=== PATIENT | female | born 1955 | race Caucasian/White ===

== ENCOUNTER → 2017-06-30 | Outpatient (CLI) | payer OTHER ==
[~2017-06-30] MED LIST: ASCO10004 PO; AZIT500T2 PO; CALC1CAP8 PO; CHOL500045 PO; LEVO50TA5 PO; MULT-257 PO; potassium PO
== END | disposition home or self-care (01) ==
LOC: STAR 09:36
PROVIDERS: ATTEND Surgery
DX: Z01.812 Encounter for preprocedural laboratory examination (principal); K80.20 Calculus of gallbladder without cholecystitis without obstruction
CPT/HCPCS: 93005

== ENCOUNTER 2017-07-09 06:04 | Day surgery (SDC) | payer OTHER ==
[~2017-07-09] VITALS: Ht 175.3 cm; Wt 56.4 kg
[2017-07-09 06:28] VITALS: BP 101/68
[2017-07-09] MEDS ORDERED: LACTATED RINGERS 1,000 ML IV SCH (06:43)
[2017-07-09] MEDS ORDERED: LIDOCAINE-MPF 1%, 2ML ONE (06:45)
[2017-07-09] MEDS ORDERED: LIDOCAINE 1%, 2ML SQ PRN (07:00)
[2017-07-09] MEDS ORDERED: EPINEPHRINE 1 MG/ML, 1ML ONE (07:33)
[2017-07-09] MEDS ORDERED: BUPIVACAINE/PF 0.5% ONE (07:33)
[2017-07-09] MEDS ORDERED: MIDAZOLAM 1 MG/ML, 2ML ONE (07:43)
[2017-07-09] MEDS ORDERED: FENTANYL PF 250 MCG/5ML ONE (07:44)
[2017-07-09] MEDS ORDERED: GABAPENTIN 300 MG CAPSULE ONE (07:46)
[2017-07-09] MEDS ORDERED: ACETAMINOPHEN 500 MG TABLET ONE (07:46)
[2017-07-09] MEDS ORDERED: LIDOCAINE GEL 2%, 5ML ONE (07:46)
[2017-07-09] MEDS ORDERED: SCOPOLAMINE PATCH, 1.5MG PATCH.TD72 TD ONE ×2 (07:46→08:00)
[2017-07-09] MEDS ORDERED: SUCCINYLCHOLINE 20 MG/ML, 10ML ONE (07:59)
[2017-07-09] MEDS ORDERED: CEFAZOLIN 1,000 MG ONE (07:59)
[2017-07-09] MEDS ORDERED: DEXAMETHASONE 4 MG/ML, 1ML ONE (07:59)
[2017-07-09] MEDS ORDERED: ONDANSETRON 2MG/ML, 2ML ONE (07:59)
[2017-07-09] MEDS ORDERED: GLYCOPYRROLATE 0.2MG/1ML, 5ML ONE (07:59)
[2017-07-09] MEDS ORDERED: PROPOFOL 10 MG/ML, 20ML ONE (07:59)
[2017-07-09] MEDS ORDERED: KETOROLAC 30 MG/1 ML ONE (07:59)
[2017-07-09] MEDS ORDERED: METOCLOPRAMIDE 5 MG/ML, 2ML ONE (07:59)
[2017-07-09] MEDS ORDERED: NEOSTIGMINE 1 MG/ML, 10ML ONE (07:59)
[2017-07-09] MEDS ORDERED: ROCURONIUM 10 MG/ML,10ML ONE (07:59)
[2017-07-09] MEDS ORDERED: GABAPENTIN 400 MG CAPSULE PO ONE (08:00)
[2017-07-09] MEDS ORDERED: ACETAMINOPHEN 500 MG TABLET PO ONE (08:00)
[2017-07-09] MEDS ORDERED: EPHEDRINE 50 MG/ML, 1ML ONE (08:02)
[2017-07-09] MEDS ORDERED: HYDROmorphone 1 MG/ML, 1ML IV PRN (08:30)
[2017-07-09] MEDS ORDERED: ONDANSETRON 2MG/ML, 2ML IVPush PRN (08:30)
[2017-07-09] MEDS ORDERED: hydrALAzine 20 MG/ML, 1ML IV PRN (08:30)
[2017-07-09] MEDS ORDERED: PROMETHAZINE 12.5 MG SUPP PR PRN (08:30)
[2017-07-09] MEDS ORDERED: ALBUTEROL/IPRATROPIUM 2.5MG/0.5MG, 3 ML NPPB PRN (08:30)
[2017-07-09] MEDS ORDERED: MEPERIDINE/PF 25MG/0.5ML IVPush PRN (08:30)
[2017-07-09] MEDS ORDERED: DIAZEPAM 5 MG/ML, 2ML IVPush PRN (08:30)
[2017-07-09] MEDS ORDERED: ACETAMINOPHEN 325 MG TABLET PO PRN (08:30)
[2017-07-09] MEDS ORDERED: LABETALOL 5MG/ML, 20ML IV PRN (08:30)
[2017-07-09] MEDS ORDERED: PROMETHAZINE 25 MG/ML, 1ML IV PRN (08:30)
[2017-07-09] MEDS ORDERED: FENTANYL PF 100 MCG/2ML IV PRN (08:30)
[2017-07-09] MEDS ORDERED: OXYcodone 5 MG/5 ML ORAL.SOL UDC PO PRN (08:30)
[2017-07-09] MEDS ORDERED: MIDAZOLAM 1 MG/ML, 2ML IV PRN (08:30)
[2017-07-09] MEDS ORDERED: FENTANYL PF 100 MCG/2ML ONE (08:48)
[2017-07-09] MEDS ORDERED: OXYcodone 5 MG/5 ML ORAL.SOL UDC ONE (08:48)
[2017-07-09] MEDS ORDERED: ACETAMINOPHEN 650 MG/20.3 ML UDC ONE (08:58)
== END 2017-07-09 15:25 | disposition home or self-care (01) ==
LOC: OUT 06:04
PROVIDERS: ATTEND Surgery
DX: K80.10 Calculus of gallbladder with chronic cholecystitis without obstruction (principal); E03.9 Hypothyroidism, unspecified; Z98.890 Other specified postprocedural states
CPT/HCPCS: 47562; 88304; J0171; J0330; J0690; J1100; J1885; J2250; J2405; J2704; J2710; J2765; J3010; J3490; J7120

== ENCOUNTER 2019-03-03 05:33 | Day surgery (SDC) | payer MEDICARE ==
[2019-02-28 12:14] LABS: BASOPHILS # (AUTO) 0.01 x10^3/uL (0-0.1); BASOPHILS % (AUTO) 0 % (0-1); EOSINOPHILS # (AUTO) 0.02 x10^3/uL (0-0.4); EOSINOPHILS % (AUTO) 1 % (1-7); LYMPHOCYTES # (AUTO) 1.12 x10^3/uL (1-3.4); LYMPHOCYTES % (AUTO) 26 % (22-44); MD NO; MEAN CORPUSCULAR HEMOGLOBIN 31.3 pg (27.0-34.8); MEAN CORPUSCULAR VOLUME 95.1 fL (80-100); MEAN PLATELET VOLUME 6.7 fL (7.4-10.4); MONOCYTES # (AUTO) 0.35 x10^3/uL (0.2-0.8); MONOCYTES % (AUTO) 8 % (2-9); NEUTROPHILS # (AUTO) 2.74 x10^3/uL (1.8-6.8); NEUTROPHILS % (AUTO) 65 % (42-75); PLATELET COUNT 191 x10^3/uL (130-400); RED BLOOD COUNT 3.96 x10^6/uL (3.82-5.3); RED CELL DISTRIBUTION WIDTH 13.5 % (9.6-15.2)
[2019-02-28 12:26] LABS: ALBUMIN 3.6 g/dL (3.4-5.0); ANION GAP 4 mmol/L (5-15); CALCIUM 8.5 mg/dL (8.5-10.1); CHLORIDE 107 mmol/L (98-107)
[2019-02-28 12:30] LABS: ALANINE AMINOTRANSFERASE 18 U/L (12-78); ALKALINE PHOSPHATASE 77 U/L (45-117); BILIRUBIN,TOTAL 0.8 mg/dL (0.2-1.0); TOTAL PROTEIN 6.3 g/dL (6.4-8.2)
[2019-02-28 12:56] LABS: MICROSCOPIC AUTO
[2019-02-28 12:58] LABS: CULTURE INDICATED? NO
[~2019-03-03] VITALS: Ht 175.3 cm; Wt 58.4 kg
[~2019-03-03 05:33] MED LIST changes: +CA C1TAB62 PO; +PROGESTERONE CREAM
[2019-03-03] MEDS ORDERED: LACTATED RINGERS 1,000 ML IV SCH (06:08)
[2019-03-03] MEDS ORDERED: LIDOCAINE-MPF 1%, 2ML ONE (06:22)
[2019-03-03 06:24] VITALS: BP 106/58
[2019-03-03 06:27] VITALS: BP 106/58
[2019-03-03] MEDS ORDERED: SCOP1PAT11 TD (06:30)
[2019-03-03] MEDS ORDERED: LIDOCAINE-MPF 1%, 2ML INFIL ONE (06:30)
[2019-03-03] MEDS ORDERED: FUROSEMIDE 20 MG/2 ML ONE (07:01)
[2019-03-03] MEDS ORDERED: LIDOCAINE 1%-EPI 1:100K, 20ML ONE (07:01)
[2019-03-03] MEDS ORDERED: NEOMY/POLYMYXIN B GU IRR. 1 ML ONE (07:01)
[2019-03-03] MEDS ORDERED: THROMBIN 5,000 UNIT VIAL TP ONE (07:01)
[2019-03-03] MEDS ORDERED: INDIGO CARMINE 0.8%, 5ML ONE (07:01)
[2019-03-03] MEDS ORDERED: MIDAZOLAM 1 MG/ML, 2ML ONE (07:29)
[2019-03-03] MEDS ORDERED: FENTANYL PF 250 MCG/5ML ONE (07:29)
[2019-03-03] MEDS ORDERED: PROPOFOL 50 ML ONE ×2 (07:34→08:38)
[2019-03-03] MEDS ORDERED: PROPOFOL 10 MG/ML, 20ML ONE (08:00)
[2019-03-03] MEDS ORDERED: PROMETHAZINE 25 MG/ML, 1ML IV PRN (08:00)
[2019-03-03] MEDS ORDERED: ONDANSETRON 2MG/ML, 2ML IV PRN (08:00)
[2019-03-03] MEDS ORDERED: CEFAZOLIN 1,000 MG ONE (08:00)
[2019-03-03] MEDS ORDERED: ACETAMINOPHEN 325 MG TABLET PO PRN (08:00)
[2019-03-03] MEDS ORDERED: ONDANSETRON 2MG/ML, 2ML ONE (08:00)
[2019-03-03] MEDS ORDERED: LORazepam 2 MG/ML, 1ML IVPush PRN (08:00)
[2019-03-03] MEDS ORDERED: ROCURONIUM 10MG/ML,5ML ONE (08:00)
[2019-03-03] MEDS ORDERED: HYDROmorphone 2 MG/ML, 1ML IVPush PRN (08:00)
[2019-03-03] MEDS ORDERED: OXYcodone 5 MG/5 ML ORAL.SOL UDC PO PRN (08:00)
[2019-03-03] MEDS ORDERED: NEOSTIGMINE 1 MG/ML, 10ML ONE (08:00)
[2019-03-03] MEDS ORDERED: DIPHENHYDRAMINE 50 MG/ML, 1ML IVPush PRN (08:00)
[2019-03-03] MEDS ORDERED: DEXAMETHASONE 4 MG/ML, 1ML ONE (08:00)
[2019-03-03] MEDS ORDERED: SUCCINYLCHOLINE 20 MG/ML, 10ML ONE (08:00)
[2019-03-03] MEDS ORDERED: PROMETHAZINE 25 MG SUPP PR PRN (08:00)
[2019-03-03] MEDS ORDERED: ONDANSETRON ODT 8 MG PO PRN (08:00)
[2019-03-03] MEDS ORDERED: MEPERIDINE/PF 25MG/ML,1ML IVPush PRN (08:00)
[2019-03-03] MEDS ORDERED: GLYCOPYRROLATE 0.2MG/1ML, 5ML ONE (08:00)
[2019-03-03] MEDS ORDERED: LIDOCAINE-MPF 2% ,5ML ONE (08:01)
[2019-03-03] MEDS ORDERED: SUGAMMADEX 200 MG/2 ML IVPush ONE (08:51)
[2019-03-03] MEDS ORDERED: ACETAMINOPHEN 325 MG TABLET ONE (09:30)
[2019-03-03] MEDS ORDERED: OXYcodone 5 MG/5 ML ORAL.SOL UDC ONE (09:30)
[2019-03-03] MEDS ORDERED: ACETAMINOPHEN 650 MG/20.3 ML UDC ONE (09:30)
[2019-03-03] MEDS ORDERED: HYDROcodone/APAP 5/325 TABLET PO ONE (13:00)
[2019-03-03] MEDS ORDERED: HYDROcodone/APAP 5/325 TABLET ONE (13:02)
[2019-03-03] MEDS ORDERED: EPHEDRINE 50 MG/ML, 1ML ONE (16:05)
== END 2019-03-03 16:00 | disposition home or self-care (01) ==
LOC: OUT 05:33
PROVIDERS: ATTEND Obstetrics & Gynecology Gynecology
DX: N92.0 Excessive and frequent menstruation with regular cycle (principal); N94.6 Dysmenorrhea, unspecified; N99.3 Prolapse of vaginal vault after hysterectomy; N73.6 Female pelvic peritoneal adhesions (postinfective); N94.89 Other specified conditions associated with female genital organs and menstrual cycle; Z88.8 Allergy status to other drugs, medicaments and biological substances; Z90.710 Acquired absence of both cervix and uterus; Z79.890 Hormone replacement therapy; Z90.49 Acquired absence of other specified parts of digestive tract; Z80.41 Family history of malignant neoplasm of ovary; Z80.1 Family history of malignant neoplasm of trachea, bronchus and lung; Z80.8 Family history of malignant neoplasm of other organs or systems
CPT/HCPCS: 36415; 57265; 57282; 58661; 71046; 80053; 81001; 85014; 85025; 88305; 93005; J0690; J1100; J2250; J2405; J2704; J3010; J3490; J7120; J2710; J0330; J1940

== ENCOUNTER 2020-08-10 17:01 | Emergency (ER) | payer MEDICARE ==
[~2020-08-10] VITALS: Ht 175.3 cm; Wt 63.3 kg
[~2020-08-10 17:01] MED LIST changes: +ASCO100018 PO; -ASCO10004 PO; +SCOP1PAT11 TD
[2020-08-10 17:04] VITALS: BP 127/85
[2020-08-10] MEDS ORDERED: ONDANSETRON 2MG/ML, 2ML ONE (17:17)
--- NOTE | 2020-08-10 17:34 | NUR ---
pt to imaging at this time.
--- NOTE | 2020-08-10 18:12 | NUR ---
emt at bedside for splint at this time.
[2020-08-10] MEDS ORDERED: MORPHINE SULFATE 4 MG/ML, 1ML ONE (18:25)
--- NOTE | 2020-08-10 18:36 | NUR ---
Patient given discharge instructions and they have confirmed that they understand the instructions. Patient ambulatory with steady gait.
--- NOTE | 2020-08-10 18:36 | NUR ---
ice pack given at dc.
== END 2020-08-10 18:38 | disposition home or self-care (01) ==
LOC: ED 18:30
DX: S52.121A Displaced fracture of head of right radius, initial encounter for closed fracture (principal); X58.XXXA Exposure to other specified factors, initial encounter; M25.562 Pain in left knee; Y93.89 Activity, other specified; Y92.89 Other specified places as the place of occurrence of the external cause; Y99.8 Other external cause status
CPT/HCPCS: 29125; 99283

== ENCOUNTER 2020-12-15 11:15 | Emergency (ER) | payer MEDICARE ==
[~2020-12-15] VITALS: Ht 175.3 cm; Wt 61.8 kg
[2020-12-15] MEDS ORDERED: ONDANSETRON 2MG/ML, 2ML IVPush ONE ×2 (12:30→13:30)
[2020-12-15] MEDS ORDERED: SODIUM CHLORIDE FLUSH 10ML SYR IVF ONE (12:30)
[2020-12-15] MEDS ORDERED: MORPHINE SULFATE 4 MG/ML, 1ML IVPush PRN (12:30)
[2020-12-15 12:34] LABS: BASOPHILS % (AUTO) 0 % (0-1); EOSINOPHILS % (AUTO) 2 % (1-7); LYMPHOCYTES % (AUTO) 19 % (22-44); MEAN CORPUSCULAR HEMOGLOBIN 31.3 pg (27.0-34.8); MEAN CORPUSCULAR HGB CONC 34.2 g/dL (32.4-35.8); MEAN PLATELET VOLUME 6.8 fL (7.4-10.4); MONOCYTES % (AUTO) 9 % (2-9); NEUTROPHILS % (AUTO) 70 % (42-75); PLATELET COUNT 159 x10^3/uL (130-400); RED BLOOD COUNT 3.95 x10^6/uL (3.82-5.3); RED CELL DISTRIBUTION WIDTH 13.2 % (9.6-15.2)
[2020-12-15] MEDS ORDERED: ONDANSETRON 2MG/ML, 2ML ONE ×2 (12:43→13:31)
[2020-12-15] MEDS ORDERED: MORPHINE SULFATE 4 MG/ML, 1ML ONE (12:43)
[2020-12-15 12:45] LABS: ANION GAP 7 mmol/L (5-15); CALCIUM 8.3 mg/dL (8.5-10.1); CHLORIDE 104 mmol/L (98-107); CREATININE 0.62 mg/dL (0.55-1.02)
--- NOTE | 2020-12-15 12:50 | NUR ---
TASK RN NOTE: IV START, MEDS ADMINISTERED PER EMAR. AWAITING CT SCAN.
--- NOTE | 2020-12-15 13:30 | NUR ---
REPORT FROM DONY DAWN
--- NOTE | 2020-12-15 13:45 | NUR ---
PT SITTING ON GURNEY, NADN/VSS. CALL LIGHT WITHIN REACH. BED IN LOWEST POSITION, BED RAILS UP X2.
[2020-12-15 13:46] LABS: MICROSCOPIC AUTO
[2020-12-15] MEDS ORDERED: PROMETHAZINE 25 MG/ML, 1ML IM ONE (14:00)
[2020-12-15] MEDS ORDERED: PROMETHAZINE 25 MG/ML, 1ML ONE (14:00)
--- NOTE | 2020-12-15 14:05 | NUR ---
PT MEDICATED PER EMAR
[2020-12-15 14:57] VITALS: BP 111/46
--- NOTE | 2020-12-15 15:00 | NUR ---
PT RESTING ON GURNEY, STATES SHE FEELS MUCH BETTER, DENIES NAUSEA. NADN/VSS. CALL LIGHT WITHIN REACH.
--- NOTE | 2020-12-15 15:37 | NUR ---
Patient given discharge instructions and RX, they have confirmed that they understand the instructions. Patient ambulatory with steady gait.
== END 2020-12-15 15:48 | disposition home or self-care (01) ==
LOC: ED 15:42
DX: R10.9 Unspecified abdominal pain (principal); M54.5 Low back pain
CPT/HCPCS: 36415; 74176; 80048; 81001; 82040; 85025; 96372; 96374; 96375; 96376; 99285; J2270; J2405; J2550